=== PATIENT | male | born 1940 | race Caucasian/White ===

== ENCOUNTER 2017-11-01 07:27 | Outpatient (CLI) | payer MEDICARE ==
--- NOTE | 2017-11-01 11:08 | ULT ---
RIGHT UPPER QUADRANT HEPATIC ULTRASOUND: HISTORY: Jaundice. TECHNIQUE: Multiplanar, page scale, and color Doppler images were obtained in a right upper quadrant hepatic ult rasound. Spectral analysis of the Doppler waveforms of the hepatic and splenic vessels were performe d. FINDINGS: The liver is increased in echogenicity without focal lesions or intrahepatic ductal dilatation. Ther e are shadowing stones in the gallbladder. There is no gallbladder wall thickening or pericholecysti c fluid. The common bile duct is normal measuring 6 mm. Normal directional flow is seen within the hepatic and splenic vasculature which also have normal wav eforms. The visualized portions of the pancreas are unremarkable. There anechoic cysts in the right kidney m easuring up to 5.1 cm in size. There is no evidence of hydronephrosis or calculi and the right kidne y measures 11.7 cm in length. IMPRESSION: 1. Fatty liver. 2. Cholelithiasis. 3. Right renal cysts. POS: [facility]
== END 2017-11-01 07:28 | disposition home or self-care (01) ==
LOC: ULT 07:27
PROVIDERS: ATTEND Nurse Practitioner Family
DX: R17 Unspecified jaundice (principal); K80.20 Calculus of gallbladder without cholecystitis without obstruction; N28.1 Cyst of kidney, acquired
CPT/HCPCS: 76705